=== PATIENT | female | born 2005 | race Caucasian/White ===

== ENCOUNTER 2025-07-26 03:52 | Emergency (ER) | payer OTHER ==
[~2025-07-26] VITALS: Ht 157.5 cm; Wt 96.0 kg
[2025-07-26 04:06] VITALS: TEMP 36.9; O2SAT 98
[2025-07-26 04:27] LABS: BASOPHILS % 0.3 % (0.0-2.0); EOSINOPHILS % 0.7 % (0.0-5.0); HEMATOCRIT. 38.9 % (36.0-48.0); HEMOGLOBIN. 12.7 g/dL (12.0-16.0); LYMPHOCYTES % 16.8 % (20.0-50.0); MEAN PLATELET VOLUME 8.9 fl (7.4-10.4); MONOCYTES % 7.0 % (2.0-8.0); NEUTROPHILS % 75.2 % (40.0-76.0); PLATELET 300 x1000/uL (130-400); RED BLOOD CELL COUNT 4.57 mill/uL (4.2-5.4); RED CELL DISTRIBUTION WIDTH 14.3 % (11.6-14.6)
[2025-07-26 04:40] LABS: CREATININE 0.8 mg/dL (0.6-1.0)
[2025-07-26 04:41] LABS: UREA NITROGEN BLOOD 8 mg/dL (9-23)
[2025-07-26 04:42] LABS: ASPARTATE AMINOTRANSFERASE 15 IU/L (<34)
[2025-07-26 04:43] LABS: BILIRUBIN DIRECT 0.1 mg/dL (<=3.0); BILIRUBIN TOTAL 0.3 mg/dL (0.1-1.0); PROTEIN TOTAL 7.7 g/dL (6.0-8.3)
[2025-07-26] MEDS: ONDANSETRON 4MG ODT PO ONE (04:55)
[2025-07-26] MEDS: KETOROLAC 15MG/ML VIAL IM ONE (04:56)
[2025-07-26] MEDS ORDERED: FAMO-135 MT (05:00)
[2025-07-26] MEDS ORDERED: ACET-2708 MT (05:00)
[2025-07-26 05:38] LABS: CLARITY URINE CLEAR (CLEAR); COLOR URINE YELLOW (YELLOW); GLUCOSE URINE NEGATIVE (NEGATIVE); KETONES URINE NEGATIVE (NEGATIVE); LEUKOCYTE ESTERASE URINE TRACE (NEGATIVE); NITRITE URINE NEGATIVE (NEGATIVE); OCCULT BLOOD URINE NEGATIVE (NEGATIVE); PH URINE 6.0 (4.5-8.0); PROTEIN URINE NEGATIVE (NEGATIVE); SPECIFIC GRAVITY URINE 1.032 (1.005-1.030); UROBILINOGEN URINE 0.2 E.U./dL (0.2-1.0)
[2025-07-26 05:59] LABS: SQUAMOUS EPITHELIAL CELL URINE 1+ /lpf (RARE/1+)
[2025-07-26 06:00] LABS: WBC URINE 0-2 /hpf (0-2)
[2025-07-26 06:01] LABS: RBC URINE 0-2 /hpf (0-2)
[2025-07-26 06:03] LABS: BACTERIA URINE TRACE
[2025-07-26 06:22] VITALS: BP 120/62; PULSE 70; RESP 18; O2SAT 99
== END 2025-07-26 06:24 | disposition home or self-care (01) ==
LOC: ER 03:52
DX: K80.20 Calculus of gallbladder without cholecystitis without obstruction (principal); R16.0 Hepatomegaly, not elsewhere classified
CPT/HCPCS: 99285; 76705; 80076; 80048; 81003; 81025; 83690; 85025; 36415; 96372; J1885; Q0162